=== PATIENT | female | born 1990 | race Caucasian/White ===

== ENCOUNTER 2017-03-09 00:23 | Emergency (ER) | payer OTHER ==
[~2017-03-09] VITALS: Ht 154.9 cm; Wt 73.3 kg
[~2017-03-09 00:23] MED LIST: GREEN VIBRANCE; LACT1CAP37 PO; MULT-658 PO; NORE-88 PO; OXYC-302 PO; POLY17PO5 PO
[2017-03-09] MEDS ORDERED: KETOROLAC 30 MG/1 ML ONE (01:24)
[2017-03-09] MEDS ORDERED: PROMETHAZINE 25 MG/ML, 1ML ONE (01:25)
[2017-03-09] MEDS ORDERED: ONDANSETRON 2MG/ML, 2ML ONE (01:25)
[2017-03-09] MEDS ORDERED: SODIUM CHLORIDE FLUSH 10ML SYR IVF ONE (01:30)
[2017-03-09] MEDS ORDERED: KETOROLAC 30 MG/1 ML IVPush ONE (01:30)
[2017-03-09] MEDS ORDERED: ONDANSETRON 2MG/ML, 2ML IVPush ONE (01:30)
[2017-03-09] MEDS ORDERED: SODIUM CHLORIDE 0.9% 1,000ML IVBOLUS ONE (01:30)
[2017-03-09] MEDS ORDERED: PROMETHAZINE 25 MG/ML, 1ML IM ONE (01:30)
[2017-03-09 01:40] LABS: ASPARTATE AMINO TRANSFERASE 17 U/L (15-37); BLOOD UREA NITROGEN 12 mg/dL (7-18)
[2017-03-09 03:30] VITALS: BP 119/71
== END 2017-03-09 03:44 | disposition home or self-care (01) ==
LOC: ED 03:38
DX: K52.29 Other allergic and dietetic gastroenteritis and colitis (principal); R11.2 Nausea with vomiting, unspecified; E86.0 Dehydration; N30.90 Cystitis, unspecified without hematuria; E86.9 Volume depletion, unspecified; R19.7 Diarrhea, unspecified; Z90.89 Acquired absence of other organs
CPT/HCPCS: 36415; 80053; 81001; 83690; 84703; 85025; 87086; 96361; 96372; 96374; 96375; 99285; J1885; J2405; J2550; J7030

== ENCOUNTER 2017-03-10 20:25 | Emergency (ER) | payer OTHER ==
[~2017-03-10] VITALS: Ht 154.9 cm; Wt 73.8 kg
[2017-03-10] MEDS ORDERED: SODIUM CHLORIDE 0.9% 1,000ML IVBOLUS ONE (21:00)
[2017-03-10] MEDS ORDERED: ONDANSETRON 2MG/ML, 2ML IVPush ONE (21:00)
[2017-03-10] MEDS ORDERED: HYDROmorphone 1 MG/ML, 1ML IVPush PRN (21:00)
[2017-03-10] MEDS ORDERED: SODIUM CHLORIDE FLUSH 10ML SYR IVF ONE (21:00)
[2017-03-10] MEDS ORDERED: FAMOTIDINE 20 MG/2 ML IVP ONE (21:00)
[2017-03-10] MEDS ORDERED: ONDANSETRON 2MG/ML, 2ML ONE (21:05)
[2017-03-10] MEDS ORDERED: HYDROmorphone 1 MG/ML, 1ML ONE (21:05)
[2017-03-10] MEDS ORDERED: FAMOTIDINE 20 MG/2 ML ONE (21:05)
[2017-03-10 22:13] LABS: IS PT STATUS REG ER OR PRE ER? YES
[2017-03-10 22:30] LABS: ASPARTATE AMINO TRANSFERASE 77 U/L (15-37); BLOOD UREA NITROGEN 4 mg/dL (7-18)
[2017-03-10] MEDS ORDERED: DIPHENHYDRAMINE 50 MG/ML, 1ML ONE (23:14)
[2017-03-10] MEDS ORDERED: DIPHENHYDRAMINE 50 MG/ML, 1ML IVPush ONE (23:30)
[2017-03-11] MEDS ORDERED: OMNIPAQUE 350 MG/ML, 100ML BOTTLE ONE
[2017-03-11 00:25] VITALS: BP 110/64
== END 2017-03-11 01:16 | disposition home or self-care (01) ==
LOC: ED 22:23
DX: R07.89 Other chest pain (principal); F41.1 Generalized anxiety disorder; Z88.5 Allergy status to narcotic agent; Z88.8 Allergy status to other drugs, medicaments and biological substances; Z91.041 Radiographic dye allergy status
CPT/HCPCS: 36415; 71010; 71275; 76700; 80053; 81001; 83690; 84484; 85025; 85379; 87086; 93005; 96361; 96374; 96375; 99285; J1170; J1200; J2405; J7030; Q9967; S0028

== ENCOUNTER 2021-01-04 21:50 | Emergency (ER) | payer OTHER ==
[~2021-01-04] VITALS: Ht 154.9 cm; Wt 68.3 kg
[~2021-01-04 21:50] MED LIST changes: +MULT-6 PO; -OXYC-302 PO; +OXYC1TAB14 PO
[2021-01-04] MEDS ORDERED: ONDANSETRON 2MG/ML, 2ML ONE (22:18)
[2021-01-04] MEDS ORDERED: HYDROmorphone 1 MG/ML, 1ML INJ ONE (22:18)
--- NOTE | 2021-01-04 22:24 | NUR ---
RUQ CRAMPING PAIN WITH EATING X 7 DAYS. ESPECIALLY PAINFUL TODAY (SINCE 7P (LAST MEAL 7P [facility]) HX OF APPENDECTOMY PIV PLACED FROM WHICH LABS WERE DRAWN PATIENT THEN MEDICATED PER EMAR FOR 10 PAIN/NAUSE
[2021-01-04] MEDS ORDERED: ONDANSETRON 2MG/ML, 2ML IVPush ONE (22:30)
[2021-01-04] MEDS ORDERED: SODIUM CHLORIDE 0.9% 1,000ML IVBOLUS ONE (22:30)
[2021-01-04] MEDS ORDERED: HYDROmorphone 1 MG/ML, 1ML INJ IV ONE (22:30)
[2021-01-04 22:36] LABS: BASOPHILS % (AUTO) 1 % (0-1); EOSINOPHILS % (AUTO) 5 % (1-7); LYMPHOCYTES % (AUTO) 24 % (22-44); MD NO; MEAN CORPUSCULAR HEMOGLOBIN 30.5 pg (27.0-34.8); MEAN CORPUSCULAR HGB CONC 34.4 g/dL (32.4-35.8); MEAN PLATELET VOLUME 8.3 fL (7.4-10.4); MONOCYTES % (AUTO) 8 % (2-9); NEUTROPHILS % (AUTO) 63 % (42-75); PLATELET COUNT 363 x10^3/uL (130-400); RED BLOOD COUNT 4.76 x10^6/uL (3.82-5.3); RED CELL DISTRIBUTION WIDTH 12.8 % (9.6-15.2)
[2021-01-04 22:43] LABS: ALANINE AMINOTRANSFERASE 23 U/L (12-78); ALBUMIN 3.9 g/dL (3.4-5.0); ANION GAP 10 mmol/L (5-15); CALCIUM 9.2 mg/dL (8.5-10.1); CHLORIDE 103 mmol/L (98-107); CREATININE 0.79 mg/dL (0.55-1.02)
[2021-01-04 22:48] LABS: ALKALINE PHOSPHATASE 65 U/L (45-117); BILIRUBIN,TOTAL 0.3 mg/dL (0.2-1.0); TOTAL PROTEIN 7.7 g/dL (6.4-8.2)
--- NOTE | 2021-01-04 22:53 | NUR ---
Pain improved to 3/10
--- NOTE | 2021-01-04 23:17 | NUR ---
U.S at bedside 1l ns complete
[2021-01-05] MEDS ORDERED: MAALOX/HYOSCYAMINE/LIDOCAINE 45 ML BTL PO ONE
[2021-01-05] MEDS ORDERED: MAALOX/HYOSCYAMINE/LIDOCAINE 45 ML BTL ONE (00:05)
[2021-01-05 00:37] VITALS: BP 103/68
--- NOTE | 2021-01-05 00:39 | NUR ---
PATIENT REFUSED GI COCKTAIL PROVIDED WITH WATER/CRACKER FOR PO CHALLENGE ERP TO BEDSIDE FOR REVIEW OF TESTING
--- NOTE | 2021-01-05 01:08 | NUR ---
Po challenge unmremarkable. pain/nausea remain stable. Placed up for recheck
== END 2021-01-05 01:54 | disposition home or self-care (01) ==
LOC: ED 22:11
DX: K29.00 Acute gastritis without bleeding (principal); Z90.89 Acquired absence of other organs; Z91.041 Radiographic dye allergy status
CPT/HCPCS: 36415; 76700; 80053; 83690; 84703; 85025; 96361; 96374; 96375; 99284; J1170; J2405; J7030

== ENCOUNTER 2021-02-01 11:59 | Emergency (ER) | payer SELFPAY ==
[~2021-02-01] VITALS: Ht 157.5 cm; Wt 86.2 kg
--- NOTE | 2021-02-01 12:45 | NUR ---
PT PRESENTS TO ED WITH C/O BILATERAL LE SWELLING. PT STATES SHE CAME FROM . PT DENIES ANY PAIN, NUMBNESS OR TINGLING. CMS INTACT. PT A&O, RESPS EVEN AND UNLABORED, VSS, NADN.
[2021-02-01 12:49] LABS: BASOPHILS % (AUTO) 1 % (0-1); EOSINOPHILS % (AUTO) 10 % (1-7); LYMPHOCYTES % (AUTO) 25 % (22-44); MEAN CORPUSCULAR HEMOGLOBIN 30.6 pg (27.0-34.8); MEAN CORPUSCULAR HGB CONC 34.2 g/dL (32.4-35.8); MEAN PLATELET VOLUME 7.8 fL (7.4-10.4); MONOCYTES % (AUTO) 8 % (2-9); NEUTROPHILS % (AUTO) 56 % (42-75); PLATELET COUNT 325 x10^3/uL (130-400); RED BLOOD COUNT 4.47 x10^6/uL (3.82-5.3); RED CELL DISTRIBUTION WIDTH 13.1 % (9.6-15.2)
--- NOTE | 2021-02-01 12:51 | NUR ---
XR AT BEDSIDE
[2021-02-01 12:58] LABS: MD NO
[2021-02-01 13:01] LABS: ALBUMIN 3.4 g/dL (3.4-5.0); ANION GAP 4 mmol/L (5-15); CALCIUM 8.9 mg/dL (8.5-10.1); CHLORIDE 108 mmol/L (98-107)
--- NOTE | 2021-02-01 13:04 | NUR ---
UA SENT TO LAB
[2021-02-01 13:15] LABS: MICROSCOPIC AUTO
[2021-02-01 13:20] LABS: ALANINE AMINOTRANSFERASE 23 U/L (12-78); ALKALINE PHOSPHATASE 52 U/L (45-117); BILIRUBIN,TOTAL 0.3 mg/dL (0.2-1.0); CREATININE 0.55 mg/dL (0.55-1.02); TOTAL PROTEIN 6.6 g/dL (6.4-8.2)
--- NOTE | 2021-02-01 13:31 | NUR ---
PT RESTING IN BED, A&O, RESPS EVEN AND UNLABORED, VSS, MONITORS ATTACHED, NSR, NADN. AWAITING LAB RESULTS AND DISPO.
--- NOTE | 2021-02-01 13:41 | NUR ---
US AT BEDSIDE
[2021-02-01 14:55] VITALS: BP 110/76
== END 2021-02-01 14:58 | disposition home or self-care (01) ==
LOC: ED 14:35
DX: S29.012A Strain of muscle and tendon of back wall of thorax, initial encounter (principal); R19.7 Diarrhea, unspecified; R60.0 Localized edema; X58.XXXA Exposure to other specified factors, initial encounter; Y93.89 Activity, other specified; Y92.89 Other specified places as the place of occurrence of the external cause; Y99.8 Other external cause status
CPT/HCPCS: 36415; 71045; 80053; 81001; 84703; 85025; 87086; 93005; 93970; 99285